=== PATIENT | female | born 1940 | race Caucasian/White ===

== ENCOUNTER 2016-12-27 06:07 | Day surgery (SDC) | payer MEDICARE, OTHER ==
[~2016-12-27] VITALS: Ht 170.2 cm; Wt 71.8 kg
[2016-12-27] MEDS ORDERED: MIDAZOLAM 1 MG/ML, 2ML ONE (06:49)
[2016-12-27] MEDS ORDERED: FENTANYL PF 250 MCG/5ML ONE (06:49)
[2016-12-27] MEDS ORDERED: ROPIvacaine/PF 0.5%, 30 ML ONE (06:54)
[2016-12-27 07:01] VITALS: BP 156/85
[2016-12-27] MEDS ORDERED: LEVO112T4 PO (07:01)
[2016-12-27] MEDS ORDERED: ROSU20TA PO (07:01)
[2016-12-27] MEDS ORDERED: CA C1TAB64 PO (07:01)
[2016-12-27] MEDS ORDERED: ACET-1600 PO (07:01)
[2016-12-27] MEDS ORDERED: MULT-658 PO (07:01)
[2016-12-27] MEDS ORDERED: CHOL200012 PO (07:01)
[2016-12-27] MEDS ORDERED: MELA5TAB PO (07:01)
[2016-12-27] MEDS ORDERED: LACTATED RINGERS 1,000 ML IV SCH (07:14)
[2016-12-27] MEDS ORDERED: PROPOFOL 10 MG/ML, 50ML ONE (07:24)
[2016-12-27] MEDS ORDERED: EPHEDRINE 50 MG/ML, 1ML ONE (07:24)
[2016-12-27] MEDS ORDERED: CEFAZOLIN 1,000 MG ONE (07:24)
[2016-12-27] MEDS ORDERED: PROMETHAZINE 25 MG/ML, 1ML IV PRN (08:30)
[2016-12-27] MEDS ORDERED: ACETAMINOPHEN 325 MG TABLET PO PRN (08:30)
[2016-12-27] MEDS ORDERED: ACETAMINOPHEN 650 MG/20.3 ML UDC ONE (08:34)
[2016-12-27] MEDS ORDERED: FENTANYL PF 100 MCG/2ML ONE ×2 (08:34→09:05)
[2016-12-27] MEDS ORDERED: OXYcodone 5 MG/5 ML ORAL.SOL UDC ONE ×2 (08:34→08:56)
[2016-12-27] MEDS: OXYcodone 5 MG/5 ML ORAL.SOL UDC PO PRN ×2 (08:35→08:57)
[2016-12-27] MEDS: FENTANYL PF 100 MCG/2ML IV PRN ×6 (08:38→09:15)
== END 2016-12-27 11:10 | disposition home or self-care (01) ==
LOC: OUT 06:07
PROVIDERS: ATTEND Orthopaedic Surgery
DX: S52.032A Displaced fracture of olecranon process with intraarticular extension of left ulna, initial encounter for closed fracture (principal); E78.5 Hyperlipidemia, unspecified; Z88.6 Allergy status to analgesic agent; Z88.2 Allergy status to sulfonamides; Z80.0 Family history of malignant neoplasm of digestive organs; W18.11XA Fall from or off toilet without subsequent striking against object, initial encounter; Y92.89 Other specified places as the place of occurrence of the external cause; Y93.89 Activity, other specified; Y99.8 Other external cause status
CPT/HCPCS: 24685; 73070; 76000; 93005; C1713; J0690; J2250; J2704; J2795; J3010; J7120

== ENCOUNTER → 2017-07-12 | Outpatient (CLI) | payer MEDICARE, OTHER ==
[~2017-07-12] MED LIST: ACET-1600 PO; CA C1TAB64 PO; CHOL200074 PO; LEVO112T4 PO; MELA5TAB19 PO; MULT-658 PO; ROSU20TA PO
== END | disposition home or self-care (01) ==
LOC: CFH 08:19
PROVIDERS: ATTEND Internal Medicine Cardiovascular Disease
DX: Z13.6 Encounter for screening for cardiovascular disorders (principal); E78.2 Mixed hyperlipidemia; Z82.49 Family history of ischemic heart disease and other diseases of the circulatory system
CPT/HCPCS: 75571

== ENCOUNTER → 2019-01-01 | Outpatient (CLI) | payer MEDICARE, OTHER ==
[~2019-01-01] MED LIST changes: +REGADENOSON 0.4 MG/5 ML SYRINGE ONE; -ROSU20TA PO; +ROSU20TA2 PO
== END | disposition home or self-care (01) ==
LOC: CFH 08:56
PROVIDERS: ATTEND Internal Medicine Cardiovascular Disease
DX: I25.10 Atherosclerotic heart disease of native coronary artery without angina pectoris (principal); I10 Essential (primary) hypertension; Z82.49 Family history of ischemic heart disease and other diseases of the circulatory system
CPT/HCPCS: 78452; 93017; A9502; J2785

== ENCOUNTER → 2020-03-19 | Outpatient (CLI) | payer MEDICARE, OTHER ==
[~2020-03-19] MED LIST changes: +MELA5TAB14 PO; -MELA5TAB19 PO; -REGADENOSON 0.4 MG/5 ML SYRINGE ONE
== END | disposition home or self-care (01) ==
LOC: CFH 10:19
PROVIDERS: ATTEND Internal Medicine
DX: Z12.31 Encounter for screening mammogram for malignant neoplasm of breast (principal)
CPT/HCPCS: 77067